=== PATIENT | female | born 2000 | race Two or more races ===

== ENCOUNTER 2025-01-08 04:03 | Emergency (ER) | payer BC, SELFPAY ==
[2025-01-08 04:04] VITALS: BMI 34.0
[2025-01-08 04:30] VITALS: BP 120/75; PULSE 88; RESP 16; TEMP 37.1; O2SAT 100
--- NOTE | 2025-01-08 04:34 | PD.EDRME ---
Rapid Medical Screening Exam RME Arrival date/time: 01/08/25 04:03 24-year-old female presents to the ED with complaint of a sharp pain that is intermittent and slightly better after taking Tylenol. Chief Complaint: Abdominal Pain Vital signs: Vital Signs Temperature 98.8 F 01/08/25 04:30 Pulse Rate 88 01/08/25 04:30 Respiratory Rate 16 01/08/25 04:30 Blood Pressure 120/75 01/08/25 04:30 Pulse Oximetry (%) 100 01/08/25 04:30 Oxygen Delivery Method Room Air 01/08/25 04:30 Pulse ox room air 100% Vital signs reviewed by provider: Yes
[2025-01-08] MEDS: MG HYD/AL HYD/SIME (Maalox Reg) SUSP 30 ML UDC PO (05:15)
[2025-01-08] MEDS: LIDOCAINE VISCOUS 2% 15 ML UDC PO (05:16)
--- NOTE | 2025-01-08 05:36 | EDNOTE_ITS ---
ED Abdominal Pain RME/HPI General Chief Complaint: Abdominal Pain Stated complaint: EPIGASTRIC PAIN Time seen by provider: 01/08/25 05:35 Arrival date/time: 01/08/25 04:03 Source: patient (24-year-old female presents urgent care with complaint of a short pain at the area of the epigastrium. This started yesterday and she has has not had any prior events leading up to today.) Mode of arrival: ambulatory Limitations: no limitations RME / HPI RME / HPI narrative: 01/08/25 04:03 24-year-old female presents to the ED with complaint of a sharp pain that is intermittent and slightly better after taking Tylenol. MD complaint: abdominal pain Related Data Previous Rx's ?Medication ?Instructions ?Recorded omeprazole 20 mg capsule,delayed 20 mg PO QDAY 8 weeks #56 caps 01/08/25 release Allergies Allergy/AdvReac Type Severity Reaction Status Date / Time NKA* Allergy Uncoded 01/08/25 04:08 Review of Systems Constitutional Constitutional: Reports system reviewed and no additional complaints, except as documented Eyes Eyes: Reports system reviewed and no additional complaints, except as documented, Denies dry eyes, Denies exophthalmos and Reports floaters Cardiovascular Cardiovascular: Denies chest pain with activity and Denies claudication Respiratory Respiratory: Reports system reviewed and no additional complaints, except as documented and Reports as per HPI Gastrointestinal Gastrointestinal: Reports system reviewed and no additional complaints, except as documented, Reports as per HPI and Reports abdominal pain Genitourinary Genitourinary: Reports system reviewed and no additional complaints, except as documented and Reports as per HPI Musculoskeletal Musculoskeletal: Reports system reviewed and no additional complaints, except as documented and Reports as per HPI Integumentary/Breasts Skin/Breast: Reports system reviewed and no additional complaints, except as documented and Reports as per HPI Neurologic Neurologic: Reports system reviewed and no additional complaints, except as documented and Reports as per HPI Past Medical History Past Medical History Comments PMH COMMENT: Denies any significant past medical history ED Exam General Limitations: Present no limitations General appearance: Present alert and in no apparent distress Head Head exam: Present atraumatic Eye Eye exam: Present normal appearance, PERRL and EOMI ENT ENT exam: Present normal exam, normal oropharynx and mucous membranes moist Neck Neck exam: Present normal inspection, full ROM and trachea midline Chest Chest inspection: Present normal inspection and symmetric chest wall rise Respiratory Respiratory exam: Present normal lung sounds bilaterally Cardiovascular Cardiovascular exam: Present regular rate, normal rhythm and normal heart sounds Abdominal Exam Abdominal exam: Present soft, tenderness (Mild tenderness to palpation in the epigastrium. Negative for Bertrand's sign and negative rebound tenderness. There is no masses and there is no guarding. Bowel sounds are hyperactive.) and normal bowel sounds Extremities Exam Extremities exam: Present normal inspection and full ROM Back Exam Back exam: Present normal inspection and full ROM Neurological Exam Neurological exam: Present alert, oriented X3 and CN II-XII intact Psychiatric Psychiatric exam: Present normal affect and normal mood Skin Skin exam: Present warm, dry, intact and normal color Course Course Course Narrative: Patient will have a GI cocktail. Quality Measures none Orders Category Date Time Status Lidocaine 2% Viscous [Xylocaine 2% Viscous] Med 01/08/25 04:41 Discontinued 15 ml PO X1 ONE mg Hyd/Al Hyd/Merly Susp [Maalox Susp] Med 01/08/25 04:41 Discontinued 30 ml PO X1 ONE Given Vital Signs Vital signs: Vital Signs Temperature 98.8 F 01/08/25 04:30 Pulse Rate 88 01/08/25 04:30 Respiratory Rate 16 01/08/25 04:30 Blood Pressure 120/75 01/08/25 04:30 Pulse Oximetry (%) 100 01/08/25 04:30 Oxygen Delivery Method Room Air 01/08/25 04:30 Pulse ox on room air is 100% Abdominal Pain MDM MDM Narrative MDM Narrative:: Patient had a GI cocktail which resolved her pain. Patient will be discharged in no apparent distress. And I will send to her pharmacy omeprazole 40 mg. She is to primary care physician for follow-up and potential diagnosis of GERD. Patient data External records reviewed:: Other (specify) Clinical information provided by:: patient Social determinants that could affect healthcare access:: none Patient has the following chronic illnesses:: N/A How is presenting disease/condition affected by chronic disease/condition?: no chronic disease Evaluation data The following diagnostics were reviewed and interpreted by me:: other (specify) Lab and/or radiology exams considered but not ordered:: N/A Interpretation Summary: N/A Medications / Prescriptions Medications or Prescriptions considered but not ordered:: N/A Medication administrations:: Medication Administration History Discontinued Medications Al Hydrox/Mg Hydrox/Simethicone (Mg Hyd/Al Hyd/Merly (Maalox Reg) Susp 30 Ml Udc) 30 ml PO X1 ONE Stop: 01/08/25 04:42 Last Admin: 01/08/25 05:15 Dose: 30 ml Documented By: BRITTANI Lidocaine HCl (Lidocaine Viscous 2% 15 Ml Udc) 15 ml PO X1 ONE Stop: 01/08/25 04:42 Last Admin: 01/08/25 05:16 Dose: 15 ml Documented By: BRITTANI Given Consultations Consultation(s) initiated? (list below): No Diagnosis Differential diagnosis abdominal pain: abdominal pain, acute appendicitis, gastroenteritis and other (Cholecystitis) Most likely diagnosis given after review of the tests above:: GERD Admission Indicated Admission indicated?: not indicated Admission Request Was there a request for admission?: No Admission Attestation Admission request attestation: N/A Disposition Plan Disposition Plan: Discharge Discharge Attestation Discharge Attestation: The patient and all family members were given an opportunity to ask questions and understood the discharge instructions. Discharge instructions specifically effects, indications for sooner follow up or return to the emergency department, and the expected course of current diagnosis. Patient condition: Stable Discharge Plan Plan Patient Disposition: HOME (Self Care) Discharge Disposition comment: Discharge in no apparent distress Patient condition on transfer: Stable Prescriptions/Referrals Prescriptions/Med Rec: New omeprazole 20 mg capsule,delayed release(DR/EC) 20 mg PO QDAY 56 Days Qty: 56 0RF Problem List Clinical Impression: Abdominal pain Patient/Caregiver Discharge Instructions Education Materials: Abdominal Pain Print Language: Montenegrin WILSON/AL Supervising Physician WILSON/AL Supervising Physician: estefania
--- NOTE | 2025-01-08 05:58 | PD.EDABDPN ---
ED Abdominal Pain RME/HPI General Chief Complaint: Abdominal Pain Stated complaint: EPIGASTRIC PAIN Time seen by provider: 01/08/25 05:35 Arrival date/time: 01/08/25 04:03 Source: patient (24-year-old female presents urgent care with complaint of a short pain at the area of the epigastrium. This started yesterday and she has has not had any prior events leading up to today.) Mode of arrival: ambulatory Limitations: no limitations RME / HPI RME / HPI narrative: 01/08/25 04:03 24-year-old female presents to the ED with complaint of a sharp pain that is intermittent and slightly better after taking Tylenol. MD complaint: abdominal pain Related Data Previous Rx's ?Medication ?Instructions ?Recorded omeprazole 20 mg capsule,delayed 20 mg PO QDAY 8 weeks #56 caps 01/08/25 release Allergies Allergy/AdvReac Type Severity Reaction Status Date / Time NKA* Allergy Uncoded 01/08/25 04:08 Review of Systems Constitutional Constitutional: Reports system reviewed and no additional complaints, except as documented Eyes Eyes: Reports system reviewed and no additional complaints, except as documented, Denies dry eyes, Denies exophthalmos and Reports floaters Cardiovascular Cardiovascular: Denies chest pain with activity and Denies claudication Past Medical History Past Medical History Comments PMH COMMENT: No past significant medical history ED Exam General Limitations: Present no limitations General appearance: Present alert and in no apparent distress Head Head exam: Present atraumatic Eye Eye exam: Present normal appearance, PERRL and EOMI ENT ENT exam: Present normal exam, normal oropharynx and mucous membranes moist Neck Neck exam: Present normal inspection, full ROM and trachea midline Chest Chest inspection: Present normal inspection and symmetric chest wall rise Respiratory Respiratory exam: Present normal lung sounds bilaterally Cardiovascular Cardiovascular exam: Present regular rate, normal rhythm and normal heart sounds Abdominal Exam Abdominal exam: Present soft and normal bowel sounds Extremities Exam Extremities exam: Present normal inspection and full ROM Back Exam Back exam: Present normal inspection and full ROM Neurological Exam Neurological exam: Present alert, oriented X3 and CN II-XII intact Psychiatric Psychiatric exam: Present normal affect and normal mood Skin Skin exam: Present warm, dry, intact and normal color Course Course Course Narrative: Patient will have a GI cocktail. Quality Measures none Orders Category Date Time Status Lidocaine 2% Viscous [Xylocaine 2% Viscous] Med 01/08/25 04:41 Discontinued 15 ml PO X1 ONE mg Hyd/Al Hyd/Merly Susp [Maalox Susp] Med 01/08/25 04:41 Discontinued 30 ml PO X1 ONE Vital Signs Vital signs: Vital Signs Temperature 98.8 F 01/08/25 04:30 Pulse Rate 88 01/08/25 04:30 Respiratory Rate 16 01/08/25 04:30 Blood Pressure 120/75 01/08/25 04:30 Pulse Oximetry (%) 100 01/08/25 04:30 Oxygen Delivery Method Room Air 01/08/25 04:30 Pulse ox is 100% room air Abdominal Pain MDM Patient data External records reviewed:: Other (specify) Clinical information provided by:: none Social determinants that could affect healthcare access:: none Patient has the following chronic illnesses:: N/A How is presenting disease/condition affected by chronic disease/condition?: no chronic disease Evaluation data The following diagnostics were reviewed and interpreted by me:: other (specify) Lab and/or radiology exams considered but not ordered:: N/A Interpretation Summary: N/A Medications / Prescriptions Medications or Prescriptions considered but not ordered:: N/A Medication administrations:: Medication Administration History Discontinued Medications Al Hydrox/Mg Hydrox/Simethicone (Mg Hyd/Al Hyd/Merly (Maalox Reg) Susp 30 Ml Udc) 30 ml PO X1 ONE Stop: 01/08/25 04:42 Last Admin: 01/08/25 05:15 Dose: 30 ml Documented By: BRITTANI Lidocaine HCl (Lidocaine Viscous 2% 15 Ml Udc) 15 ml PO X1 ONE Stop: 01/08/25 04:42 Last Admin: 01/08/25 05:16 Dose: 15 ml Documented By: BRITTANI Given Consultations Consultation(s) initiated? (list below): No Diagnosis Differential diagnosis abdominal pain: abdominal pain, calculus of kidney, constipation and diverticulitis Most likely diagnosis given after review of the tests above:: GERD Admission Indicated Admission indicated?: not indicated Admission Request Was there a request for admission?: No Disposition Plan Disposition Plan: Discharge Discharge Attestation Discharge Attestation: The patient and all family members were given an opportunity to ask questions and understood the discharge instructions. Discharge instructions specifically effects, indications for sooner follow up or return to the emergency department, and the expected course of current diagnosis. Patient condition: Stable Discharge Plan Plan Patient Disposition: HOME (Self Care) Discharge Disposition comment: Discharge in no apparent distress Patient condition on transfer: Stable Prescriptions/Referrals Prescriptions/Med Rec: New omeprazole 20 mg capsule,delayed release(DR/EC) 20 mg PO QDAY 56 Days Qty: 56 0RF Problem List Clinical Impression: Abdominal pain Patient/Caregiver Discharge Instructions Education Materials: Abdominal Pain Print Language: Algerian PA/BROOM STITCHER Supervising Physician PA/BROOM STITCHER Supervising Physician: estefania
== END 2025-01-08 05:50 | disposition home or self-care (01) ==
LOC: SERX 05:46
PROVIDERS: Emergency Provider Emergency Medicine; PCP Family Medicine
DX: R10.13 Epigastric pain (principal)
CPT/HCPCS: 99282; J3490; A9270

== ENCOUNTER → 2025-07-26 | Outpatient (CLI) | payer BC, SELFPAY ==
--- NOTE | 2025-07-26 13:00 | XR_ITS ---
Examination: Transvaginal ultrasound of the pelvis, complete Technique: Transvaginal sonographic images pelvis performed using cardona scale imaging Exam date and time: July 26, 2025, 1335 hours INDICATIONS: Irregular painful menses years FINDINGS: Uterus 6.3 cm uterine fundal mass 3.7 x 2.3 x 3.4 cm Endometrial stripe 0.6 cm Right ovary 2.4 cm arterial flow Left ovary 2.8 cm arterial flow IMPRESSION: Uterine fundal area of probable fibroid degeneration, recommend 6-month follow-up transvaginal pelvic sonography.
--- NOTE | 2025-07-26 13:00 | XR_ITS ---
Examination: Pelvic ultrasound, transabdominal, complete Technique: Transabdominal ultrasound of the pelvis performed using grayscale imaging Date and time of exam: July 26, 2025, 1316 hours INDICATIONS: Irregular painful menses years. FINDINGS: Uterus 7.9 cm uterine fundal mass vascular 3.3 x 2.5 x 2.8 cm Endometrial stripe 1.4 cm Right ovary 3.5 cm arterial flow Left ovary 3.1 cm arterial flow IMPRESSION: Uterine area of probable fibroid degeneration as above, recommend 6-month follow-up transvaginal pelvic sonography
== END | disposition home or self-care (01) ==
PROVIDERS: PCP Nurse Practitioner; Referring Provider Nurse Practitioner; Visit Provider Nurse Practitioner
DX: N85.8 Other specified noninflammatory disorders of uterus (principal)
CPT/HCPCS: 76830; 76856